=== PATIENT | female | born 1950 | race Caucasian/White ===

== ENCOUNTER 2016-07-04 21:58 | Emergency (ER) | payer MEDICARE, OTHER ==
[2016-07-04] MEDS ORDERED: NS 0.9% 1000 ML* 1,000 ML IV ONE (22:03)
--- NOTE | 2016-07-04 22:08 | ED ---
Deepthi Vazquez Claudia, scribed for Devon Fuller MD on 07/04/16 at 2204 . Complex/Multi-Sys Presentation - HPI Summary HPI Summary: 66 year old female presents to the ED via EMS. Family called EMS because per EMS pt is confused. Pt admits to fatigue. She is unable to identify where she is and the correct year. Level 5 caveat- confusion - History Of Current Complaint Hx Obtained From: Patient Hx From Patient Unobtainable Due To: Dementia Associated Signs And Symptoms: Positive: Other - confused - Allergies/Home Medications Allergies/Adverse Reactions: Allergies Allergy/AdvReac Type Severity Reaction Status Date / Time No Known Allergies Allergy Verified 04/11/15 17:05 PMH/Surg Hx/FS Hx/Imm Hx Previously Healthy: Yes Endocrine/Hematology History: Reports: Hx Diabetes, Hx Anemia Cardiovascular History: Reports: Hx Congestive Heart Failure, Hx Coronary Artery Disease, Hx Hypercholesterolemia, Hx Hypertension, Hx Myocardial Infarction - x 3 Comment Only: Other Cardiovascular Problems/Disorders - - Respiratory History: Reports: Hx Chronic Obstructive Pulmonary Disease (COPD), Other Respiratory Problems/Disorders - 1ppd smoker for 45 years GI History: Reports: Hx Gastroesophageal Reflux Disease, Hx Hiatal Hernia, Other GI Disorders - hernia History: Reports: Hx Chronic Renal Failure - diabetic nephropathy, creat baseline 1.3 Sensory History: Reports: Hx Contacts or Glasses - reading Opthamlomology History: Reports: Hx Contacts or Glasses - reading Psychiatric History: Reports: Hx Anxiety, Hx Depression - Surgical History Surgery Procedure, Year, and Place: CARDIAC STENT PLACEMENT. Cholecystectomy Hx Anesthesia Reactions: No - Immunization History Date of Tetanus Vaccine: Unk Date of Influenza Vaccine: Fall 2013 - Family History Known Family History: Positive: Cardiac Disease - 2 grandparents, Other - father had cancer, unknown what kind. mother had breast cancer - Social History Lives: With Family Alcohol Use: None Hx Substance Use: No Substance Use Type: Reports: None Hx Tobacco Use: Yes - smokes 1/2 pack per day Smoking Status (MU): Heavy Every Day Tobacco Smoker Type: Cigarettes Amount Used/How Often: 1 pack q day Have You Smoked in the Last Year: Yes Review of Systems - ROS Summary Review of Systems Summary: level 5 caveat- confused Positive: Fatigue Neurological: Other - confused All Other Systems Reviewed And Are Negative: No Physical Exam Triage Information Reviewed: Yes Vital Signs On Initial Exam: Initial Vitals Temp Pulse Resp BP Pulse Ox 101 F 102 21 155/59 97 07/04/16 22:01 07/04/16 22:01 07/04/16 22:01 07/04/16 22:01 07/04/16 22:01 Vital Signs Reviewed: Yes Appearance: Positive: Thin - malodorous Skin: Positive: Warm Head/Face: Positive: Normal Head/Face Inspection Eyes: Positive: KARLIE ENT: Positive: Hearing grossly normal Neck: Positive: Supple Respiratory/Lung Sounds: Positive: Breath Sounds Present Cardiovascular: Positive: Normal Abdomen Description: Positive: Nontender, Soft Bowel Sounds: Positive: Present Musculoskeletal: Positive: Strength/ROM Intact Neurological: Positive: Sensory/Motor Intact Diagnostics - Vital Signs Vital Signs Temp Pulse Resp BP Pulse Ox 07/04/16 22:01 101 F 102 21 155/59 97 - Laboratory Result Diagrams: 07/04/16 22:25 07/04/16 22:25 Lab Statement: Any lab studies that have been ordered have been reviewed, and results considered in the medical decision making process. - Radiology CHEST XRAY Xray Interpretation: Positive (See Comments) - THE CONSTELLATION OF FINDINGS IS MOST CONSISTENT WITH MILD INTERSTITIAL EDEMA AND ASSOCIATED SMALL PLEURAL EFFUSIONS LESS PROMINENT THAN ON THE PRIOR EXAN SUPERIMPOSED ON STIGMATA OF ADVANCED COPD. Radiology Interpretation Completed By: Radiologist - EKG 22:06 Cardiac Rate: NL EKG Rhythm: Sinus Rhythm - 96 beats/min EKG Interpretation: left posterior hemiblock Complex Multi-Symp Course/Dx Assessment/Plan: Pt presents with confusion. After a work-up, CXR and EKG. Dr. Perez will admit patient to [facility] [place] - Diagnoses Provider Diagnoses: Fever - Physician Notifications Discussed Care Of Patient With: 23:49. Discussed care of patient with Dr. Perez. Dr. Perez will admit patient to [facility] [place]. Time Discussed With Above Provider: 23:50 Instructed by Provider To: Admit As Inpatient Discharge - Discharge Plan Condition: Fair Disposition: ADMITTED TO [facility] documentation as recorded by the Deepthi schwartz Claudia accurately reflects the service I personally performed and the decisions made by me, Devon Fuller MD.
[2016-07-04 22:43] LABS: Hematocrit 33 % (35-47); Hemoglobin 10.8 g/dl (12.0-16.0); Mean Corpuscular HGB Conc 32 g/dl (31-36); Mean Corpuscular Hemoglobin 27 pg (27-31); Mean Corpuscular Volume 83 fL (80-97); Mean Platelet Volume 7 um3 (7.4-10.4); Red Blood Count 4.04 10^6/ul (4.0-5.4); Red Cell Distribution Width 17 % (10.5-15)
[2016-07-04 22:47] LABS: Add Diff/Slide Review? Slide Review Added; Comments Flag Yes
[2016-07-04 22:57] LABS: ALT 7 U/L (7-52); AST 9 U/L (13-39); Albumin 3.7 g/dL (3.2-5.2); Alkaline Phosphatase 107 U/L (34-104); Anion Gap 6 mmol/L (2-11); BUN/Creatinine Ratio 14.1 (8-20); Blood Urea Nitrogen 22 mg/dL (6-24); CO2 Carbon Dioxide 23 mmol/L (22-32); Calcium 9.1 mg/dL (8.6-10.3); Chloride 97 mmol/L (101-111); EGFR African American 42.6 (>60); EGFR Non-African American 33.1 (>60); Globulin 3.9 g/dL (2-4); Glucose 183 mg/dL (70-100); Magnesium 1.6 mg/dL (1.9-2.7); Potassium 5.4 mmol/L (3.5-5.0); Sodium 126 mmol/L (133-145); Total Protein 7.6 g/dL (6.4-8.9)
[2016-07-04 23:03] LABS: Troponin I 0.05 ng/mL (<0.04)
[2016-07-04 23:14] LABS: Alcohol < 10 mg/dL (<10)
--- NOTE | 2016-07-04 23:14 | RAD ---
INDICATION: Shortness of breath. Cough. History of COPD and congestive heart failure. Tobacco use. COMPARISON: December 16, 2015 TECHNIQUE: Dual energy PA and routine lateral views of the chest were obtained. REPORT: The patient is deviated to the LEFT with pendulous breasts superimposed over the lung bases and resulting in artifactual opacity. Elevated lung volumes and moderately coarse interstitial markings. Suggestion of small pleural effusions with interval decrease on the LEFT. Mild prominence of the interstitial markings with subtle thickened peripheral interlobular septa. Cardiomegaly. Mildly prominent central pulmonary vasculature. Unchanged mild mid thoracic spine vertebral compression fractures. No new thoracic spine compression fractures evident. Healed fractures of the RIGHT seventh and eighth ribs noted posterolaterally. No acute rib fracture evident. IMPRESSION: The constellation of findings is most consistent with mild interstitial edema and associated small pleural effusions less prominent than on the prior exam superimposed on stigmata of advanced chronic obstructive pulmonary disease.
[2016-07-04 23:24] LABS: TSH (Thyroid Stimulating Horm) 0.39 mcIU/mL (0.34-5.60)
[2016-07-04 23:33] LABS: Urine Bacteria Absent (Absent); Urine Bilirubin Negative (Negative); Urine Glucose 1+(50 mg/dL) (Negative); Urine Nitrite Negative (Negative)
[2016-07-05] MEDS ORDERED: Al Hydrox/Mg Hydrox/Simet LIQ* 30 ML UDC PO PRN (00:28)
[2016-07-05] MEDS ORDERED: Acetaminophen TAB* 325 MG PO PRN (00:28)
[2016-07-05] MEDS ORDERED: Ondansetron INJ* 2 MG/ML VIAL IV PRN (00:28)
[2016-07-05] MEDS ORDERED: Docusate CAP* 100 MG PO PRN (00:28)
[2016-07-05] MEDS ORDERED: Senna TAB PO PRN (00:28)
[2016-07-05] MEDS ORDERED: Magnesium Sulfate IV* 3 GM in NS 0.9% 100 ML* 100 ML IVPB ONE (00:31)
[2016-07-05] MEDS ORDERED: Albuterol HFA INHALER* 8 gm MDI INH PRN (00:32)
[2016-07-05] MEDS ORDERED: Dextrose 50% Syringe 50 ML* 25 GM/50 ML SYRINGE IV PUSH PRN (00:32)
[2016-07-05] MEDS ORDERED: Acetaminophen TAB* 325 MG ONE (00:42)
[2016-07-05] MEDS ORDERED: NS 0.9% 1000 ML* 1,000 ML IV ONE (00:47)
[2016-07-05] MEDS ORDERED: Insulin GLARGINE(*) 1 UNITS UNIT SUBCUT SCH (01:00)
[2016-07-05] MEDS ORDERED: NS 0.9% 1000 ML* 1,000 ML IV SCH (01:00)
[2016-07-05 02:46] VITALS: BP 150/67
[2016-07-05] MEDS ORDERED: Heparin VIAL(*) 5000 UNITS/ML VIAL (FIVE THOUSAND) SUBCUT SCH (06:00)
[2016-07-05] MEDS: Aspirin EC Low Dose* 81 MG TAB.EC PO SCH ×2 (07:24→10:31)
[2016-07-05 07:29] LABS: Hematocrit 30 % (35-47); Hemoglobin 9.6 g/dl (12.0-16.0); Mean Corpuscular HGB Conc 32 g/dl (31-36); Mean Corpuscular Hemoglobin 26 pg (27-31); Mean Corpuscular Volume 83 fL (80-97); Mean Platelet Volume 7 um3 (7.4-10.4); Red Blood Count 3.63 10^6/ul (4.0-5.4); Red Cell Distribution Width 17 % (10.5-15)
[2016-07-05] MEDS ORDERED: Insulin LISPRO* 1 UNITS UNIT SUBCUT SCH (07:30)
[2016-07-05 07:35] LABS: Comments Flag Yes
[2016-07-05 07:44] LABS: BUN/Creatinine Ratio 13.9 (8-20); Calcium 8.6 mg/dL (8.6-10.3); EGFR African American 49.5 (>60); EGFR Non-African American 38.5 (>60)
[2016-07-05] MEDS ORDERED: Fluticasone-Salmeterol 250-50* DISKUS INH SCH (09:00)
[2016-07-05] MEDS ORDERED: DULoxetine DR CAP* 60 MG CAP.DR PO SCH (09:00)
[2016-07-05] MEDS ORDERED: Tiotropium CAP.INH* CAP.INH/18 MCG (USE ORDER SET !) INH SCH (09:00)
[2016-07-05] MEDS ORDERED: Gabapentin CAP(*) 300 MG PO SCH (09:00)
--- NOTE | 2016-07-05 10:08 | HP ---
HISTORY AND PHYSICAL: DATE OF ADMISSION: 07/05/16 TIME OF EVALUATION: 0015. PRIMARY CARE PHYSICIAN: Kilo Stoner MD CHIEF COMPLAINT: Fever and altered mental status. HISTORY OF PRESENT ILLNESS: This is a 66-year-old female with a past medical history of COPD, on chronic oxygen; diabetes; hypertension, who presents to the emergency room with fever and concern for altered mental status. The patient states she started with a fever today and not feeling well. Her family, daughter and son-in-law, who lives with her called the EMS, they were concerned about her mental status and she was sent here via EMS for further evaluation. The patient states she has a chronic cough. She does not have worsening shortness of breath. No chest pain, no nausea, vomiting, diarrhea. No abdominal pain. No urinary symptoms. No myalgias or rash. No sick contacts. No recent travel. Otherwise, remaining review of systems is negative. In the emergency room, the patient had labs, imaging. She was given a liter of fluid and was referred to the hospitalist service for further evaluation. PAST MEDICAL HISTORY: 1. COPD, on 2 L continuous. 2. Diabetes. 3. Coronary artery disease. 4. GERD. 5. Depression. 6. Chronic pain. 7. Tobacco use. 8. Hyperlipidemia. MEDICATIONS: The patient has a limited provided, they are as follows: 1. Duloxetine DR 60 mg p.o. daily. 2. Glipizide 10 mg. 3. Metformin 500 mg. 4. Oxycodone/acetaminophen 10/325. 5. Spironolactone 25 mg p.o. daily. 6. Simvastatin 80 mg p.o. daily. 7. Gabapentin 600 mg. Of note, this list does not provide frequency of when she takes them. She states she takes inhalers but is unable to tell me which one they are. On the discharge summary from November, it appears she takes albuterol inhaler, fluticasone and salmeterol one puff inhaled b.i.d., and Spiriva 1 inhaled daily. ALLERGIES: No known drug allergies. FAMILY HISTORY: Reviewed and noncontributory. SOCIAL HISTORY: The patient lives with her daughter and son-in-law. She is still smoking. She states she has been smoking 2 packs per day for 50 years. No alcohol or illicit drug use. Her daughter, Cristela Odonnell, is her healthcare proxy. She is a DNR/DNI. REVIEW OF SYSTEMS: As mentioned in the HPI. PHYSICAL EXAMINATION GENERAL: In no acute distress, disheveled appearing. VITAL SIGNS: Temp T-max of 101, pulse rate 102, respiratory rate 21, oxygen saturation 97% on 2 L, blood pressure 155/59. HEENT: Pupils equal and reactive, anicteric. Oropharynx: Mucous membranes are moist. No erythema or exudate. Head: Normocephalic. NECK: Supple. No lymphadenopathy. No nuchal rigidity. RESPIRATORY: Diminished breath sounds. No wheezes, rhonchi, or rales. Poor aeration. CARDIAC: Regular rate and rhythm. Distant heart sounds. Soft systolic murmur heard throughout. ABDOMEN: Soft, nontender, nondistended. EXTREMITIES: The patient with poor hygiene in her lower extremities. No clubbing, cyanosis, or edema. NEUROLOGIC: Alert and oriented x2; oriented to place and self. No focal neurologic deficits. DIAGNOSTIC STUDIES/LAB DATA: White count 22, hemoglobin 10.8, hematocrit 33, platelets 419. Sodium 126, potassium 5.4, chloride 97, BUN 22, creatinine 1.56 , bicarb 23, glucose 183, magnesium 1.6, lactic acid 1.6. Troponin 0.05. Urine is unremarkable, +2 protein. Toxicology is negative alcohol. Chest x-ray: No significant findings on wet read. EKG showing normal sinus. ASSESSMENT AND PLAN: This is a 66-year-old female with a past medical history of chronic obstructive pulmonary disease, on continuous oxygen, who is still smoking who presents to the emergency room with fever and altered mental status. 1. Fever and altered mental status. Assessment: The patient's history and physical are consistent with systemic inflammatory response syndrome. It is unclear the etiology behind her fever. I am swabbing her right now for flu. She has no respiratory symptoms. Her chest x-ray is unremarkable. This could be early onset of viral illness, not otherwise specified. Plan: No indication for antibiotics at this time. We will follow up on blood cultures. If she continues to deteriorate, we will start her on antibiotics. If she gets dehydrated, we will continue to hydrate her. We will follow up on the flu swab and repeat her labs in the morning. 2. Acute kidney injury. Assessment is likely in the setting of her infectious process. It appears that she has an underlying chronic kidney disease based on prior creatinines. Plan: We will renally dose her meds. Repeat her labs in the morning and IV fluids. 3. Indeterminate troponin. Assessment: The patient with a troponin of 0.05 with no significant findings on EKG and no chest pain. She does have a history of coronary artery disease. I suspect this is demand ischemia in the setting of her infection. Plan: We will put her on telemetry, trend her troponins, and start her on a baby aspirin. CHRONIC MEDICAL PROBLEMS: 1. COPD. We will resume her presumed inhaler regimen that was from discharge summary in November of 2015. 2. Diabetes. We will place her on lispro and Lantus, hold oral agents. We will continue her Effexor and her gabapentin and recommend contacting the pharmacy in the morning to get an accurate complete med rec for the remaining medications. 3. FEN. We will place her on a diabetic diet. 4. DVT prophylaxis. She scores high risk. Will be placed on heparin subcu t.i.d. 5. Disposition planning. Due to patient's appearing poorly disheveled and not well taking care of, we will consult Social Work to help with safe discharge planning. 6. Code status. DNR/DNI. PATIENT TIME: Greater than 45 minutes spent doing the history and physical, more than half the time was spent in direct patient contact. CC: Kilo Stoner MD* [id number]/[facility] #: [id number] LAZARO
[2016-07-05] MEDS ORDERED: Spiriva Inhaler DEVICE* 1 EACH DEVICE INH ONE (11:00)
[2016-07-05 11:28] LABS: Manual Entry Verification GRE0060; Mono Internal Control QC Line Present
[2016-07-05] MEDS ORDERED: Mometasone/Formoter 200/5 MDI INH SCH (12:12)
--- NOTE | 2016-07-06 07:43 | DS ---
DISCHARGE SUMMARY: DATE OF ADMISSION: 07/05/16 DATE OF DISCHARGE: 07/05/16 PRIMARY CARE PHYSICIAN: Dr. Kilo Stoner. DISCHARGE DIAGNOSIS: An episode of fever and altered mental status, most likely due to systemic inflammatory response syndrome and most likely viral illness. SECONDARY DIAGNOSES: 1. Chronic obstructive pulmonary disease, on 2 L continuously. 2. Diabetes. 3. Coronary artery disease. 4. Gastroesophageal reflux disease. 5. Depression. 6. Chronic pain. 7. History of chronic tobacco use. 8. Hyperlipidemia. MEDICATIONS AT DISCHARGE: Unchanged from admission and include: 1. Duloxetine DR 60 mg daily. 2. Glipizide 10 mg daily. 3. Metformin 500 mg daily. 4. Oxycodone/acetaminophen 10/325 mg on a p.r.n. basis. 5. Aldactone 25 mg daily. 6. Simvastatin 80 mg daily. 7. Gabapentin 600 mg previously taken. 8. The patient also has Spiriva 1 inhalation daily. 9. The patient is instructed to continue her albuterol inhaler and fluticasone and salmeterol inhalers as previously taken. 10. The patient is using DuoNeb nebulizers on a p.r.n. basis, and she is to continue them as previously taken. HOSPITALIZATION COURSE: Please note the patient was at ED hold during her 15- hour hospital stay. She initially was admitted to the hospital on 07/05/16 early after midnight with an alteration of mental status. She appeared to be in systemic inflammatory response syndrome with leukocytosis, but no evidence of infection. She also had a temperature of 101 degrees. Troponin was mildly elevated at 0.05 and it is chronic and consistent with prior reports. Her EKG was unchanged. Her magnesium was at 1.6 and that was replaced her with IV magnesium. She also has chronic kidney disease stage 3, most likely due to the diabetes with creatinine that had been unchanged, but she was slightly hyponatremic and hyperkalemic that resolved after treatment with intravenous fluids. Nevertheless, once the patient was seen within the 14 hours of her admission, she was back to her baseline mentally. The patient does have history of being confused at night and I believe she probably sundowns. In fact, she was thoroughly evaluated for a similar occurrence in August 2015 and please refer to further medical records for this evaluation that included an EEG. Once again, the patient's leukocytosis with a white blood cell count of 22,000 resolved spontaneously and was down to 15,000 after intravenous fluids in the emergency department. The patient had been euthermic throughout her hospital stay apart from the initial temperature of 101 degrees recorded at admission. Her microbiology studies show influenza tests that were negative. Her blood cultures are still pending. Her urinalysis was unremarkable for infection. At this point, the patient is ready to go home and appears to be back to her baseline. She is going to be discharged home with recommendations to follow up with Dr. Stoner in approximately 4-7 days. No medications are changed. Smoking cessation was strongly recommend to the patient, but the patient appears not too willing to follow those recommendations and she still smokes a pack per day of cigarettes. She is aware of the dangers of smoking when on oxygen. I strongly recommended against it. PHYSICAL EXAMINATION AT THE TIME OF DISCHARGE: Blood pressure of 150/67, heart rate of 97 and regular, respiratory rate 18, oxygen saturation 95% on 2 L O2 nasal cannula, temperature 98.8. General: The patient is a very pleasant 66-year-old female, slightly disheveled , of thin body habitus, who is in no acute distress. The patient is alert, awake, and oriented x2. She is oriented to the month of July and 2016, but not the exact date. HEENT: Head atraumatic, normocephalic. Eyes: Pupils equal, reactive to light and accommodation. Oropharynx is clear. Mucosa moist. Neck: Supple. No JVD. No bruit bilaterally. Cardiovascular: Regular rate and rhythm. No murmur. Respiratory: Distant breath sounds bilaterally with very scattered wheezes in the bilateral upper lungs. Otherwise clear. Abdomen: Soft, nontender, bowel sounds positive in all 4 quadrants. Visible midline abdominal hernia noted that is supraumbilical. There is no tenderness to palpation of the hernia. Extremities: There is no edema. Pulses +2 bilaterally. No clubbing or cyanosis. Neurologic: Speech clear. Cranial nerves II through XII grossly intact. Motor strength is 5/5 bilaterally. Please note that this is a short summary of the patient's hospital stay. Please refer to further medical records for details. ADDENDUM TO DISCHARGE SUMMARY: DATE OF ADMISSION: 07/05/16 DATE OF DISCHARGE: 07/05/16 HOME MEDICATIONS: 1. Advair Diskus 50/50 one inhalation twice a day. 2. Albuterol inhaler 2 puffs every 4 hours p.r.n. 3. Aspirin 81 mg daily. 4. Digoxin 250 mcg daily. 5. Cymbalta 60 mg daily. 6. Pepcid 40 mg b.i.d. 7. Gabapentin 600 mg 3 times a day. 8. Glipizide 10 mg b.i.d. 9. Metformin 500 mg b.i.d. 10. Ramipril 2.5 mg daily. 11. Risperdal 0.25 mg at night. 12. Simvastatin 80 mg daily. 13. Iron ER 325 mg 3 times a day. 14. Lantus insulin 10 units q.h.s. 15. Magnesium oxide 500 mg. The patient takes 2 capsules, which is 1000 mg daily. 16. Percocet 10/325 mg every 4 to 6 hours as needed. 17. Singulair 10 mg daily. 18. Vitamin C 1 tablet daily 500 mg. 19. Voltaren 1% topical gel, apply up to 4 times a day for psoriasis on the body. The patient is asked to discontinue her spironolactone due to mild hyperkalemia with which she presented to the emergency department and to refer to primary care provider in 4to 6 days for a followup visit for further recommendations. CC: Dr. Kilo Stoner* [id number]/[facility] #: [id number]/[facility] #: [id number] MTDJonas
--- NOTE | 2016-07-06 08:09 | DS ---
DISCHARGE SUMMARY: ADDENDUM: DATE OF ADMISSION: 07/05/16 DATE OF DISCHARGE: 07/05/16 HOME MEDICATIONS: 1. Advair Diskus 50/50 one inhalation twice a day. 2. Albuterol inhaler 2 puffs every 4 hours p.r.n. 3. Aspirin 81 mg daily. 4. Digoxin 250 mcg daily. 5. Cymbalta 60 mg daily. 6. Pepcid 40 mg b.i.d. 7. Gabapentin 600 mg 3 times a day. 8. Glipizide 10 mg b.i.d. 9. Metformin 500 mg b.i.d. 10. Ramipril 2.5 mg daily. 11. Risperdal 0.25 mg at night. 12. Simvastatin 80 mg daily. 13. Iron ER 325 mg 3 times a day. 14. Lantus insulin 10 units q.h.s. 15. Magnesium oxide 500 mg. The patient takes 2 capsules, which is 1000 mg daily. 16. Percocet 10/325 mg every 4 to 6 hours as needed. 17. Singulair 10 mg daily. 18. Vitamin C 1 tablet daily 500 mg. 19. Voltaren 1% topical gel, apply up to 4 times a day for psoriasis on the body. The patient is asked to discontinue her spironolactone due to mild hyperkalemia with which she prese nted to the emergency department and to refer to primary care provider in 4to 6 days for a followup visit for further recommendations. [id number]/[facility] #: [id number]
== END 2016-07-05 14:05 | disposition home or self-care (01) | DRG 864 ==
LOC: ED 21:58 → UNDOADMIN 07-05 00:28 → MEDTELE 07-05 00:28
DX: R50.9 Fever, unspecified (principal); F03.90 Unspecified dementia, unspecified severity, without behavioral disturbance, psychotic disturbance, mood disturbance, and anxiety; R53.83 Other fatigue; R41.0 Disorientation, unspecified; F17.210 Nicotine dependence, cigarettes, uncomplicated
CPT/HCPCS: 36415; 71020; 80048; 80053; 80320; 81003; 81015; 83605; 83735; 84145; 84443; 84484; 85025; 86308; 87040; 87502; 87641; 93005; 99284; A9270-GY; G0480; J1644; J3475

== ENCOUNTER → 2018-04-29 19:48 | Emergency (ER) | payer MEDICARE, OTHER ==
[~2018-04-29 19:48] MED LIST: NS 0.9% 1000 ML* 1,000 ML IV ONE
--- NOTE | 2018-04-29 20:13 | ED ---
Altered Mental Status - HPI Summary HPI Summary: Level 5 Caveat: Unable to obtain complete HPI due to AMS The pt is a 68 y/o female [facility] c/o weakness since 2 days ago worsened yesterday. She notes confusion, dry mouth, fatigue, nausea, and difficulty walking but denies dysuria. Her daughter reports that the pt recently got discharged from hospital where she had been admitted for COPD and a UTI. Since then, the pt has been different. She appears confused and agitated. Ap per EMS , the pt appeared pale and diaphoretic on arrival. Her BG was 37 mg/dL on EMS arrival, 71 mg/dL en route and 60mg/dL on arrival to the ED. The pt resisted attempts for IV access en route. She also appeared pale, cool to touch and diaphoretic. - History Of Current Complaint Stated Complaint: SLURRED SPEECH/LT SIDE WEAKNESS Time Seen by Provider: 04/29/18 20:03 Hx Obtained From: Patient, Family/Business Broker - Daughter, EMS Hx From Patient Unobtainable Due To: Altered Mental Status Onset/Duration: Still Present, Gradually Timing: Constant Character: Confusion, Agitation Associated Signs And Symptoms: Positive: Nausea, Weakness - Allergies/Home Medications Allergies/Adverse Reactions: Allergies Allergy/AdvReac Type Severity Reaction Status Date / Time No Known Allergies Allergy Verified 04/11/15 17:05 PMH/Surg Hx/FS Hx/Imm Hx Previously Healthy: No - Level 5 Caveat: Unable to obtain complete Mhx due to AMS Endocrine/Hematology History: Reports: Hx Diabetes, Hx Anemia Cardiovascular History: Reports: Hx Congestive Heart Failure, Hx Coronary Artery Disease, Hx Hypercholesterolemia, Hx Hypertension, Hx Myocardial Infarction - x 3 Comment Only: Other Cardiovascular Problems/Disorders - - Respiratory History: Reports: Hx Chronic Obstructive Pulmonary Disease (COPD), Other Respiratory Problems/Disorders - 1ppd smoker for 45 years GI History: Reports: Hx Gastroesophageal Reflux Disease, Hx Hiatal Hernia, Other GI Disorders - hernia History: Reports: Hx Chronic Renal Failure - diabetic nephropathy, creat baseline 1.3 Sensory History: Reports: Hx Contacts or Glasses - reading Opthamlomology History: Reports: Hx Contacts or Glasses - reading Psychiatric History: Reports: Hx Anxiety, Hx Depression - Cancer History Cancer Type, Location and Year: None reported - Surgical History Surgery Procedure, Year, and Place: Cardiac Stent Placement. Cholecystectomy Hx Anesthesia Reactions: No - Immunization History Date of Tetanus Vaccine: Unk Date of Influenza Vaccine: Fall 2013 Infectious Disease History: Denies: Traveled Outside the [place] in Last 30 Days - Family History Known Family History: Positive: Cardiac Disease - 2 grandparents, Other - father had cancer, unknown what kind. mother had breast cancer - Social History Lives: With Family Alcohol Use: None Hx Substance Use: No Substance Use Type: Reports: None Hx Tobacco Use: Yes - smokes 1/2 pack per day Smoking Status (MU): Heavy Every Day Tobacco Smoker Type: Cigarettes Amount Used/How Often: 1 pack q day Have You Smoked in the Last Year: Yes Review of Systems - ROS Summary Review of Systems Summary: Level 5 Caveat: Unable to obtain complete ROS due to AMS Constitutional: Other - Positive: Weakness, confusion, agitation Positive: Fatigue, Skin Diaphoresis Gastrointestinal: Other - Positive: Dry mouth Positive: Nausea Negative: dysuria Skin: Other - Positive: cool to touch, pale Positive: Weakness All Other Systems Reviewed And Are Negative: No Physical Exam - Summary Physical Exam Summary: Level 5 Caveat: Unable to obtain complete PE due to AMS Appearance: The patient is well-nourished in no acute distress and in no acute pain.She arouses to voice and answers simple questions Skin: The skin is warm and dry and skin color reflects adequate perfusion. HEENT: The head is normocephalic and atraumatic. The pupils are equal and reactive. The conjunctivae are clear and without drainage. Nares are patent and without drainage. Mouth reveals moist mucous membranes and the throat is without erythema and exudate. The external ears are intact. The ear canals are patent and without drainage. The tympanic membranes are intact. Neck: The neck is supple with full range of motion and non-tender. There are no carotid bruits. There is no neck vein distension. Respiratory: Chest is non-tender. Lungs are clear to auscultation and breath sounds are symmetrical and equal. Cardiovascular: Heart is regular rate and rhythm. There is no murmur or rub auscultated. There is no peripheral edema and pulses are symmetrical and equal. Abdomen: The abdomen is soft and non-tender. There are normal bowel sounds heard in all four quadrants and there is no organomegaly palpated. Musculoskeletal: There is no back tenderness noted. Extremities are non-tender with full range of motion. There is good capillary refill. There is no peripheral edema or calf tenderness elicited. Neurological: Patient is alert and oriented to person, place and time. The patient has symmetrical motor strength in all four extremities. Cranial nerves are grossly intact. Deep tendon reflexes are symmetrical and equal in all four extremities. Psychiatric: The patient has an appropriate affect and does not exhibit any anxiety or depression. GCS: 14 Triage Information Reviewed: Yes Vital Signs On Initial Exam: Initial Vital Signs Temp 96.4 F 04/29/18 20:06 Pulse 59 04/29/18 20:06 Resp 25 04/29/18 20:06 BP 136/66 04/29/18 20:06 Pulse Ox 100 04/29/18 20:06 Vital Signs Reviewed: Yes Completion Of Physical Exam Limited Due To: Altered Mental Status Diagnostics - Laboratory Result Diagrams: 04/29/18 20:33 04/29/18 20:25 Lab Statement: Any lab studies that have been ordered have been reviewed, and results considered in the medical decision making process. - Radiology CXR Radiology Interpretation Completed By: ED Physician - IMPRESSION:Left heart border is somewhat obscured but the exam is consistent with her most recent read as mild pulmonary edema. - CT Brain CT CT Interpretation Completed By: Radiologist - IMPRESSION: No acute intracranial abnormality. The ED physician reviewed this radiology report. - EKG 20:07 EKG Rhythm: Atrial Fibrillation Summary of EKG Findings: Rate: 93 bpm Altered Mental Statu Course/Dx - Course Course Of Treatment: Ms. Metz presented to the emergency department and confused and agitated state. She has had a recent admission to the hospital and since she's been home her daughter is not felt that she's been completely back to normal. Her fingerstick blood sugar earlier today was over 300 and she was covered with insulin just prior to calling the ambulance. The eminence found her blood sugar to be 70 on fingerstick. He her blood sugar was 60 and she was given orange juice while the rest of her labs were obtained. On initial presentation she was somewhat lethargic and confused. By the time her blood sugar came back at 50 she was back to normal after drinking 2 glasses of orange juice. Even though her symptoms seem to have occurred when her blood sugar was high according to the family, she improved completely with blood sugar here and the family agrees that she is back to her normal self. She is eating something now and will be discharged as long as she remains stable. - Diagnoses Provider Diagnoses: Hypoglycemic reaction Discharge - Sign-Out/Discharge Documenting (check all that apply): Patient Departure - Discharge Plan Condition: Stable Disposition: HOME Patient Education Materials: Hypoglycemia in a Person with Diabetes (ED) Referrals: Herbie BENNETT,Kilo oJhns [Primary Care Provider] - - Billing Disposition and Condition Condition: STABLE Disposition: Home - Attestation Statements Document Initiated by Scribe: Yes Documenting Scribe: Nita Boyle Provider For Whom Celine is Documenting (Include Credential): Dr. Arnoldo Pate MD Scribe Attestation: Nita Vazquez , scribed for Dr. Arnoldo Pate MD on 04/29/18 at 2149. Scribe Documentation Reviewed: Yes Provider Attestation: The documentation as recorded by the scribeNita accurately reflects the service I personally performed and the decisions made by me, Dr. Arnoldo Pate MD
[2018-04-29 20:41] LABS: Hematocrit 44 % (35-47); Hemoglobin 14.6 g/dl (12.0-16.0); Mean Corpuscular HGB Conc 33 g/dl (31-36); Mean Corpuscular Hemoglobin 29 pg (27-31); Mean Corpuscular Volume 87 fL (80-97); Mean Platelet Volume 7.4 um3 (7.4-10.4); Platelet Count 433 10^3/ul (150-450); Red Blood Count 5.05 10^6/ul (4.00-5.40); Red Cell Distribution Width 14 % (10.5-15); White Blood Count 14.9 10^3/ul (3.5-10.8)
[2018-04-29 20:47] LABS: INR 0.85 (0.77-1.02)
--- NOTE | 2018-04-29 20:51 | RAD ---
EXAM: CT Head Without Intravenous Contrast EXAM DATE/TIME: 04/29/2018 8:44 PM CLINICAL HISTORY: 68 years old, female; Pain; Headache; Additional info: AMS TECHNIQUE: Axial computed tomography images of the head/brain without intravenous contrast. All CT scans at this facility use at least one of these dose optimization techniques: automated exposure control; mA and/or kV adjustment per patient size (includes targeted exams where dose is matched to clinical indication); or iterative reconstruction. COMPARISON: BRAIN WO CT BRAIN WO 09/06/2015 4:56 AM FINDINGS: Brain: Decreased attenuation of the supratentorial white matter is likely secondary to chronic microvascular ischemia. No acute intracranial hemorrhage. Ventricles: Ventricular and subarachnoid spaces are age appropriate. Bones/joints: Normal. No acute fracture. Sinuses: Polypoid mucosal disease involving the right greater than left maxillary sinuses. Mastoid air cells: Partial opacification of the bilateral mastoid air cells Soft tissues: Normal. Vasculature: Intracranial vascular calcification. IMPRESSION: No acute intracranial abnormality. To contact [facility] with a general question: [facility] - [phone] For direct physician to physician contact: Physician Hotline - [phone] [facility] ([facility] Facility ID #[id number])
[2018-04-29 20:58] LABS: EGFR Non-African American 35.5 (>60)
[2018-04-29 21:30] LABS: Urine Appearance Cloudy; Urine Blood Negative (Negative); Urine Color Yellow; Urine Ketones Negative (Negative); Urine Protein 2+(100 mg/dL) (Negative); Urine Red Blood Cell Absent (Absent); Urine Specific Gravity 1.015 (1.010-1.030); Urine Urobilinogen Negative (Negative); Urine White Blood Cell Trace(0-5/hpf) (Absent)
[2018-04-29 21:31] LABS: ABS Basophils 0.1 10^3/ul (0-0.2); ABS Eosinophils 0.2 10^3/ul (0-0.6); ABS Monocytes 1.8 10^3/ul (0-0.8); ABS Neutrophils 11.9 10^3/ul (1.5-7.7); ABS Nucleated RBC 0 10^3/ul; Lymphocyte % 6.6 % (25-47); Nucleated Red Blood Cells % 0.1
[2018-04-29 22:24] VITALS: BP 122/74
--- NOTE | 2018-04-30 08:04 | RAD ---
HISTORY: AMS COMPARISONS: July 04, 2016 VIEWS: 1: frontal AP view of the chest at 8:21 PM FINDINGS: LINES AND TUBES: None. CARDIOMEDIASTINAL SILHOUETTE: The cardiomediastinal silhouette is normal for portable technique. PLEURA: The costophrenic angles are sharp. No pleural abnormalities are noted. LUNG PARENCHYMA: There is patchy alveolar opacification of the left lung base. There is prominence of the central pulmonary vasculature. ABDOMEN: The upper abdomen is clear. There is no subphrenic gas. BONES AND SOFT TISSUES: No bone or soft tissue abnormalities are noted. IMPRESSION: PULMONARY VASCULAR CONGESTION WITH LEFT BASILAR ATELECTASIS VERSUS EARLY CONSOLIDATION. R2
--- NOTE | 2018-04-30 18:43 | PN ---
Progress Note - Progress Note Date of Service: 04/29/18 Note: Pt. seen in ER yesterday for hypoglycemia and altered mental status. The side chest x-ray done at that time. Radiology read is concerning for possible early consolidation versus atelectasis. Attempted to call patient at home today at 1842, message left. Will attempt to call again tomorrow.
--- NOTE | 2018-05-01 18:29 | PN ---
Progress Note - Progress Note Date of Service: 05/01/18 Note: patient called back yesterday and today and discussed no fever. no cough. so will not treat as pneumonia. will follow up with primary about chest xray results.
== END | disposition home or self-care (01) ==
LOC: ED 19:48
DX: E11.649 Type 2 diabetes mellitus with hypoglycemia without coma (principal); R53.1 Weakness; R47.81 Slurred speech; R11.0 Nausea; F17.210 Nicotine dependence, cigarettes, uncomplicated
CPT/HCPCS: 36415; 70450; 71045; 80053; 80320; 81003; 81015; 83605; 83880; 84484; 85025; 85610; 87086; 93005; 99284; G0480

== ENCOUNTER 2019-08-02 17:45 | Emergency (ER) | payer MEDICARE, OTHER ==
[2019-08-02] MEDS ORDERED: Acetaminophen TAB* 325 MG PO ONE (18:09)
--- NOTE | 2019-08-02 18:10 | ED ---
Adult Trauma - HPI Summary HPI Summary: 69 year old female presents to the ED with a chief complaint of buttock, left hip and lower chest wall pain secondary to falling from a standing position [employer]VOC[employer]. She did not lose consciousness. Patient usually uses a walker, but is now unable to walk 2/2 pain. Patient is usually on 2L O2. History of CHF, HTN, ND, and CRF. Patient denies LOC or hitting head. No HELDER. Not on blood thinners. - History of Current Complaint Chief Complaint: EDFall Stated Complaint: FALLS & HIP/BACK PAIN PER EMS Time Seen by Provider: 08/02/19 17:53 Hx Obtained From: Patient ?: No Mechanism of Injury: Fall - From a standing position Loss of Consciousness: no loss of consciousness Onset of Pain: Immediate Onset Severity: Severe Current Severity: Severe Pain Intensity: 8 Pain Scale Used: 0-10 Numeric Location: Chest, Abdomen/Pelvis Aggravating Factor(s): Weight Bearing Alleviating Factor(s): Nothing Associated Signs & Symptoms: Positive: Chest Pain - Chest wall. Negative: Loss of Consciousness - Additional Pertinent History Primary Care Physician: EVA - Allergy/Home Medications Allergies/Adverse Reactions: Allergies Allergy/AdvReac Type Severity Reaction Status Date / Time No Known Allergies Allergy Verified 12/17/18 13:56 PMH/Surg Hx/FS Hx/Imm Hx Endocrine/Hematology History: Reports: Hx Anemia Denies: Hx Diabetes Cardiovascular History: Reports: Hx Congestive Heart Failure, Hx Coronary Artery Disease, Hx Hypercholesterolemia, Hx Hypertension, Hx Myocardial Infarction - x 3 Comment Only: Other Cardiovascular Problems/Disorders - - Respiratory History: Reports: Hx Chronic Obstructive Pulmonary Disease (COPD), Other Respiratory Problems/Disorders - 1ppd smoker for 45 years GI History: Reports: Hx Gastroesophageal Reflux Disease, Hx Hiatal Hernia, Other GI Disorders - hernia History: Reports: Hx Chronic Renal Failure - diabetic nephropathy, creat baseline 1.3 Sensory History: Reports: Hx Contacts or Glasses - reading Denies: Hx Hearing Aid Opthamlomology History: Reports: Hx Contacts or Glasses - reading Neurological History: Reports: Hx Dementia - early onset Denies: Hx Seizures, Hx Transient Ischemic Attacks (TIA) Psychiatric History: Reports: Hx Anxiety, Hx Depression - Cancer History Cancer Type, Location and Year: None reported - Surgical History Surgery Procedure, Year, and Place: Cardiac Stent Placement. Cholecystectomy Hx Anesthesia Reactions: No - Immunization History Date of Tetanus Vaccine: Unk Date of Influenza Vaccine: Fall 2013 Infectious Disease History: No Infectious Disease History: Denies: Traveled Outside the [place] in Last 30 Days - Family History Known Family History: Positive: Cardiac Disease - 2 grandparents, Other - father had cancer, unknown what kind. mother had breast cancer - Social History Alcohol Use: None Hx Substance Use: No Substance Use Type: Reports: None Hx Tobacco Use: Yes - smokes 1/2 pack per day Smoking Status (MU): Heavy Every Day Tobacco Smoker Type: Cigarettes Amount Used/How Often: 1 pack q day Have You Smoked in the Last Year: Yes Review of Systems Negative: Fever Positive: Chest Pain - Left chest wall Positive: Arthralgia - Left hip, Myalgia Negative: Syncope All Other Systems Reviewed And Are Negative: Yes Physical Exam - Summary Physical Exam Summary: Constitutional: Well-developed, Well-nourished, elderly, obese Alert HENT: Normocephalic. Atraumatic, No abrasions/contusions, No trismus. Nasal Cannula in place. Eyes: EOM normal, PERRL Neck: Trachea midline, No stridor, No cervical step off, No posterior cervical spine tenderness Cardio: Rhythm regular, rate normal, Heart sounds normal, Radial pulses are 2+ and symmetric. Pulmonary/Chest wall: Effort normal, Breath sounds normal, (-) Stridor, Equal chest rise. Mild L sided lower lateral rib tenderness. Abd: Soft, Appearance normal. (-) Distension, (-) Tenderness. Musculoskeletal: No obvious extremity trauma. No TL midline tenderness. TTP to sacrum, lower left rib, and lateral left hip. Neuro: Alert, GCS 15. Strength 5/5 all extremities. Ambulation deferred Skin: Warm, Dry, Skin intact Triage Information Reviewed: Yes Vital Signs On Initial Exam: Initial Vitals Temp Pulse Resp BP Pulse Ox 97.4 F 61 20 184/84 93 08/02/19 17:53 08/02/19 17:53 08/02/19 17:53 08/02/19 17:53 08/02/19 17:53 Vital Signs Reviewed: Yes Procedures - Sedation Patient Received Moderate/Deep Sedation with Procedure: No Diagnostics - Vital Signs Vital Signs Temp Pulse Resp BP Pulse Ox 08/02/19 17:53 97.4 F 61 20 184/84 93 - Laboratory Lab Statement: Any lab studies that have been ordered have been reviewed, and results considered in the medical decision making process. - Radiology Sacrum XR Radiology Interpretation Completed By: ED Physician Summary of Radiographic Findings: No acute fracture. Pending official read. An ED physician has reviewed and interpreted this scan. Pelvis XR Radiology Interpretation Completed By: ED Physician Summary of Radiographic Findings: No acute fracture. Pending official read. An ED physician has reviewed and interpreted this scan. CXR Radiology Interpretation Completed By: ED Physician Summary of Radiographic Findings: No acute fracture. Pending official read. An ED physician has reviewed and interpreted this scan. Re-Evaluation - Re-Evaluation First Eval Re-Evaluation Time: 19:50 Comment: Patient unable to ambulate with effort, only able to stand. Plan for pelvic CT. Second Eval Re-Evaluation Time: 21:35 Comment: I have discussed results with the patient. Discussed symptoms that warrant immediate return to ED. Adult Trauma Course/Dx - Course Course Of Treatment: 69 y/o F w hx CHF on home O2, p/w fall from sitting. - VS w baseline hypoxia, on home O2. PE w TTP L lateral ribs, coccyx, L hip. no midline CTL tenderness. Plain films neg for fr. Given tylenol for pain. Signed out pending re evaluation, ambulation. If unable to ambulate would check CT pelvis to r/o occult fr. - Diagnoses Provider Diagnoses: Fall, Pain in buttock, Rib pain on left side Discharge ED - Sign-Out/Discharge Documenting (check all that apply): Sign-Out Patient Signing out patient TO: Nelida Anaya - Patient is a signout to Dr. Anaya at change of shifts at 1900 on 08/02/19. - Discharge Plan Condition: Stable Disposition: HOME Patient Education Materials: Fall Prevention for Older Adults (ED) Referrals: Herbie BENNETT,Kilo Johns [Primary Care Provider] - 3 Days Additional Instructions: Please follow up with your primary care physician within three days. Please return to ED for any new or worsening symptoms. - Billing Disposition and Condition Condition: STABLE Disposition: Home - Attestation Statements Document Initiated by Scribe: Yes Documenting Scribe: Jose Canchola Provider For Whom Scribe is Documenting (Include Credential): Ishmael Prajapati MD Scribe Attestation: IJose scribed for Ishmael Prajapati MD on 08/03/19 at 0742. Scribe Documentation Reviewed: Yes Provider Attestation: The documentation as recorded by the scribe, Jose Canchola accurately reflects the service I personally performed and the decisions made by me, Ishmael Prajapati MD Status of Scribe Document: Viewed
--- NOTE | 2019-08-02 19:11 | ED ---
Progress - Progress Note Progress Note: The patient is a sign-out from Dr. Ishmael Prajapati MD, to Dr. Nelida Anaya MD, at change of shift at 1900 on 08/02/2019, pending ambulation and disposition. Patient unable to ambulate well. We will order a Pelvis CT. Pelvis CT is negative for fracture. Patient is safe for discharge. Her daughter will come pick her up. - Results/Orders Results/Orders: Pelvis CT Impression: No visible acute fracture or dislocation. ED physician has reviewed this report. Re-Evaluation - Re-Evaluation First Eval Re-Evaluation Time: 19:50 Comment: Patient unable to ambulate with effort, only able to stand. Plan for pelvic CT. Second Eval Re-Evaluation Time: 21:35 Comment: I have discussed results with the patient. Discussed symptoms that warrant immediate return to ED. Course/Dx - Course Course Of Treatment: 69 year old female signed out to me after fall. still with hip pain and difficulty ambulating. ct pelvis negative. patient states she would rather go home than be admitted. ambulater with walker. discharged to home. follow up with PCP, follow up sooner for any worsening symptoms. - Diagnoses Provider Diagnoses: Fall, Pain in buttock, Rib pain on left side Discharge ED - Sign-Out/Discharge Documenting (check all that apply): Patient Departure - Patient will be discharged home., Receiving Sign-Out Receiving patient FROM: Ishmael Prajapati - Patient is a sign-out from Dr. Ishmael Prajapati MD, at 1900 on 08/02/2019, pending ambulation and disposition. - Discharge Plan Condition: Stable Disposition: HOME Patient Education Materials: Fall Prevention for Older Adults (ED) Referrals: Herbie BENNETT,Kilo Johns [Primary Care Provider] - 3 Days Additional Instructions: Please follow up with your primary care physician within three days. Please return to ED for any new or worsening symptoms. - Billing Disposition and Condition Condition: STABLE Disposition: Home - Attestation Statements Document Initiated by Scribe: Yes Documenting Scribe: Ibeth Stanley Provider For Whom Scribe is Documenting (Include Credential): Dr. Nelida Anaya MD Scribe Attestation: IIbeth, laurenibed for Dr. Nelida Anaya MD on 08/03/19 at 0013. Scribe Documentation Reviewed: Yes Provider Attestation: The documentation as recorded by the scribe, Ibeth Stanley accurately reflects the service I personally performed and the decisions made by me, Dr. Nelida Anaya MD Status of Scribe Document: Viewed Procedures - Sedation Patient Received Moderate/Deep Sedation with Procedure: No
[2019-08-02] MEDS ORDERED: Lidocaine PATCH 5%* 1 PATCH TRANSDERM ONE (20:00)
[2019-08-02] MEDS ORDERED: Lidocaine Patch REMOVE* 1 NOTE MISC SCH (21:00)
[2019-08-02 22:27] VITALS: BP 143/63
[2019-08-03] MEDS ORDERED: Lidocaine Patch REMOVE* 1 NOTE MISC PATCH OFF SCH (06:00)
== END 2019-08-02 22:29 | disposition home or self-care (01) ==
LOC: ED 17:45
DX: R07.81 Pleurodynia (principal); M79.10 Myalgia, unspecified site; M25.552 Pain in left hip; W18.30XA Fall on same level, unspecified, initial encounter; Y92.9 Unspecified place or not applicable; M85.88 Other specified disorders of bone density and structure, other site; J98.11 Atelectasis; I25.2 Old myocardial infarction; I13.0 Hypertensive heart and chronic kidney disease with heart failure and stage 1 through stage 4 chronic kidney disease, or unspecified chronic kidney disease; N18.9 Chronic kidney disease, unspecified; J44.9 Chronic obstructive pulmonary disease, unspecified; Z99.81 Dependence on supplemental oxygen; Z95.5 Presence of coronary angioplasty implant and graft; F17.210 Nicotine dependence, cigarettes, uncomplicated
CPT/HCPCS: 71046; 72190; 72192; 72220; 99283; A9270-GY

== ENCOUNTER 2020-03-06 20:03 | Observation (INO) ==
[2020-03-06] MEDS ORDERED: NS 0.9% 1000 ml BAG 1,000 ML IV.FLUID IV ONE (20:13)
[2020-03-06 21:04] LABS: Urine Appearance Cloudy; Urine Bilirubin Negative (Negative); Urine Blood 1+ (Negative); Urine Color Yellow; Urine Glucose 3+(>=500 mg/dL) (Negative); Urine Ketones Negative (Negative); Urine Nitrite Negative (Negative); Urine Protein 3+(>=500 mg/dL) (Negative); Urine Specific Gravity 1.017 (1.010-1.030); Urine Urobilinogen Negative (Negative)
[2020-03-06 21:17] LABS: ABS Basophils 0.1 10^3/ul (0-0.2); ABS Lymphocytes 0.8 10^3/ul (1.0-4.8); ABS Neutrophils 13.4 10^3/ul (1.5-7.7); Eosinophil % 0.2 %; Hematocrit 39 % (35-47); Hemoglobin 13.1 g/dL (12.0-16.0); Lymphocyte % 5.4 %; Mean Corpuscular HGB Conc 33 g/dL (31-36); Mean Corpuscular Hemoglobin 29 pg (27-31); Mean Corpuscular Volume 86 fL (80-97); Mean Platelet Volume 7.7 fL (7.4-10.4); Nucleated Red Blood Cells % 0.1; Platelet Count 348 10^3/uL (150-450); Red Blood Count 4.56 10^6 /uL (3.70-4.87); Red Cell Distribution Width 14 % (10-15); White Blood Count 15.4 10^3/uL (3.5-10.8)
[2020-03-06 21:28] LABS: Activated Partial Thrombo Time 31.3 seconds (26.0-38.0); INR 1.23 (0.82-1.09)
[2020-03-06 21:43] LABS: Albumin 3.8 g/dL (3.2-5.2); BUN/Creatinine Ratio 20.9 (8-20); Calcium 9.1 mg/dL (8.6-10.3); EGFR African American 28.7 (>60); EGFR Non-African American 23.7 (>60); Globulin 3.7 g/dL (2-4); Potassium 4.9 mmol/L (3.5-5.0); Total Bilirubin 0.5 mg/dL (0.2-1.0); Total Protein 7.5 g/dL (6.4-8.9)
[2020-03-06 21:44] LABS: Troponin I 0.02 ng/mL (<0.03)
[2020-03-06] MEDS ORDERED: Dextrose 50% Syringe 50 ml 25 GM/50 ML SYRINGE IV PUSH PRN (22:13)
[2020-03-07] MEDS ORDERED: cefTRIAXone 1 gm/50 mL NS BAG 1 GM/50 ML BAG IV ONE (00:57)
[2020-03-07] MEDS ORDERED: Senna TAB 8.6 mg TAB PO PRN (02:41)
[2020-03-07] MEDS ORDERED: Ondansetron 4 mg VIAL 2 MG/ML 2 ml VIAL IV PRN (02:41)
[2020-03-07] MEDS ORDERED: Albuterol HFA INHALER 8 gm MDI INH PRN (02:43)
[2020-03-07] MEDS ORDERED: Iodixanol (CONTRAST) 320 MG/ML 100 ML SDV IV ONE (04:11)
[2020-03-07] MEDS: NS 0.9% 1000 ml BAG 1,000 ML IV SCH ×2 (05:34→16:24)
[2020-03-07 05:35] LABS: C Reactive Protein 108.13 mg/L (<8.01); HDL Cholesterol 48.9 mg/dL
[2020-03-07] MEDS: Cholecalciferol (VIT D3) 400 units TAB PO SCH (08:31)
[2020-03-07] MEDS: DULoxetine DR 60 mg CAP PO SCH (08:31)
[2020-03-07] MEDS: Nystatin TOP POWDER 15 GM BTL TOPICAL SCH ×3 (08:32→20:09)
[2020-03-07 16:31] LABS: ABS Basophils 0.1 10^3/ul (0-0.2); ABS Eosinophils 0.3 10^3/ul (0-0.6); ABS Lymphocytes 1.5 10^3/ul (1.0-4.8); ABS Monocytes 1.2 10^3/ul (0-0.8); ABS Neutrophils 7.8 10^3/ul (1.5-7.7); Eosinophil % 2.3 %; Hematocrit 35 % (35-47); Hemoglobin 11.4 g/dL (12.0-16.0); Lymphocyte % 13.6 %; Mean Corpuscular HGB Conc 33 g/dL (31-36); Mean Corpuscular Hemoglobin 28 pg (27-31); Mean Corpuscular Volume 87 fL (80-97); Mean Platelet Volume 7.6 fL (7.4-10.4); Platelet Count 284 10^3/uL (150-450); Red Blood Count 4.03 10^6 /uL (3.70-4.87); Red Cell Distribution Width 15 % (10-15); White Blood Count 10.8 10^3/uL (3.5-10.8)
[2020-03-07 16:41] LABS: Calcium 8.4 mg/dL (8.6-10.3); Potassium 4.7 mmol/L (3.5-5.0)
[2020-03-07 16:46] LABS: BUN/Creatinine Ratio 21.8 (8-20); C Reactive Protein 197.5 mg/L (<8.01); EGFR African American 33.8 (>60); EGFR Non-African American 27.9 (>60)
[2020-03-07] MEDS: Insulin GLARGINE 100 un/ml 10 ml VIAL SUBCUT SCH (20:09)
[2020-03-08] MEDS: cefTRIAXone 1 gm/50 mL NS BAG 1 GM/50 ML BAG IVPB SCH (00:44)
[2020-03-08] MEDS: NS 0.9% 1000 ml BAG 1,000 ML IV SCH ×2 (02:56→23:03)
[2020-03-08 06:06] LABS: ABS Basophils 0.1 10^3/ul (0-0.2); ABS Eosinophils 0.5 10^3/ul (0-0.6); ABS Lymphocytes 1.5 10^3/ul (1.0-4.8); ABS Monocytes 0.9 10^3/ul (0-0.8); ABS Neutrophils 6.3 10^3/ul (1.5-7.7); Eosinophil % 5.8 %; Hematocrit 31 % (35-47); Hemoglobin 10.6 g/dL (12.0-16.0); Mean Corpuscular HGB Conc 35 g/dL (31-36); Mean Corpuscular Hemoglobin 30 pg (27-31); Mean Corpuscular Volume 86 fL (80-97); Mean Platelet Volume 7.6 fL (7.4-10.4); Platelet Count 276 10^3/uL (150-450); Red Cell Distribution Width 15 % (10-15); White Blood Count 9.4 10^3/uL (3.5-10.8)
[2020-03-08 06:23] LABS: BUN/Creatinine Ratio 19.7 (8-20); Calcium 8.3 mg/dL (8.6-10.3); EGFR African American 35.1 (>60); Potassium 4.4 mmol/L (3.5-5.0)
[2020-03-08] MEDS: DULoxetine DR 60 mg CAP PO SCH (08:15)
[2020-03-08] MEDS: Cholecalciferol (VIT D3) 400 units TAB PO SCH (08:16)
[2020-03-08] MEDS: Nystatin TOP POWDER 15 GM BTL TOPICAL SCH ×3 (08:16→21:01)
[2020-03-08 14:19] LABS: Influenza A Molecular Negative (Negative); Influenza B Molecular Negative (Negative)
[2020-03-08] MEDS: Insulin GLARGINE 100 un/ml 10 ml VIAL SUBCUT SCH (21:00)
[2020-03-09] MEDS: cefTRIAXone 1 gm/50 mL NS BAG 1 GM/50 ML BAG IVPB SCH (01:18)
[2020-03-09 09:27] VITALS: BP 159/70
[2020-03-09] MEDS: DULoxetine DR 60 mg CAP PO SCH (09:56)
[2020-03-09] MEDS: Nystatin TOP POWDER 15 GM BTL TOPICAL SCH ×2 (09:56→14:32)
[2020-03-09] MEDS: Cholecalciferol (VIT D3) 400 units TAB PO SCH (09:56)
== END 2020-03-09 15:00 | disposition home or self-care (01) ==
LOC: ED 20:03 → MEDTELE 20:03
PROVIDERS: ADMIT Internal Medicine; ATTEND Student in an Organized Health Care Education/Training Program

== ENCOUNTER 2021-06-23 18:32 | Inpatient (IN) ==
[2021-06-23 19:07] LABS: ABS Basophils 0.1 10^3/ul (0-0.2); ABS Eosinophils 0.2 10^3/ul (0-0.6); ABS Lymphocytes 1.4 10^3/ul (1.0-4.8); ABS Monocytes 1.4 10^3/ul (0-0.8); ABS Neutrophils 13.5 10^3/ul (1.5-7.7); Eosinophil % 0.9 %; Hematocrit 36 % (35-47); Hemoglobin 11.3 g/dL (12.0-16.0); Lymphocyte % 8.5 %; Mean Corpuscular HGB Conc 32 g/dL (31-36); Mean Corpuscular Hemoglobin 28 pg (27-31); Mean Corpuscular Volume 87 fL (80-97); Mean Platelet Volume 7.5 fL (7.4-10.4); Nucleated Red Blood Cells % 0.1; Platelet Count 446 10^3/uL (150-450); Red Cell Distribution Width 18 % (10-15); White Blood Count 16.6 10^3/uL (3.5-10.8)
[2021-06-23 19:12] LABS: PCO2 Arterial 42 mmHg (35-45); PO2 Arterial 85 mmHg (80-100)
[2021-06-23 19:25] LABS: Albumin 3.7 g/dL (3.2-5.2); Albumin/Globulin Ratio 0.9 (1-3); C Reactive Protein 201.9 mg/L (<8.01); Calcium 8.5 mg/dL (8.6-10.3); Globulin 4.1 g/dL (2-4); Total Bilirubin 0.5 mg/dL (0.2-1.0); Total Protein 7.8 g/dL (6.4-8.9); eGFR CKD-EPI 17.5 (>60)
[2021-06-23 19:44] LABS: Magnesium 2.2 mg/dL (1.9-2.7); Potassium 4.6 mmol/L (3.5-5.0)
[2021-06-23 20:05] LABS: TSH Ultra Thyroid Stim Horm 0.42 mcIU/mL (0.34-5.60)
[2021-06-23] MEDS ORDERED: Azithromycin 500 mg/250 ml NS 500 MG/250 ML BAG IVPB ONE (20:14)
[2021-06-23] MEDS ORDERED: cefTRIAXone 1 gm/50 mL NS BAG 1 GM/50 ML BAG IV ONE (20:14)
[2021-06-23] MEDS ORDERED: Furosemide 40 mg/4 ml IV VIAL IV ONE (20:56)
[2021-06-23] MEDS ORDERED: Dextrose 50% Syringe 50 ml 25 GM/50 ML SYRINGE IV PUSH PRN (21:00)
[2021-06-23] MEDS ORDERED: Albuterol HFA INHALER 8 gm MDI INH PRN (21:00)
[2021-06-23] MEDS: Insulin GLARGINE 100 un/ml 10 ml VIAL SUBCUT SCH (23:05)
[2021-06-24 02:30] LABS: Urine Appearance Cloudy; Urine Bilirubin Negative (Negative); Urine Blood 2+ (Negative); Urine Color Yellow; Urine Glucose Negative (Negative); Urine Ketones Negative (Negative); Urine Nitrite Negative (Negative); Urine Protein 2+(100 mg/dL) (Negative); Urine Specific Gravity 1.009 (1.002-1.030); Urine Urobilinogen Negative (Negative)
[2021-06-24 02:37] LABS: Urine Bacteria 1+ (Absent); Urine Red Blood Cell 3+(>10/hpf) (Absent); Urine Squamous Epithelial Cell Present (Absent); Urine White Blood Cell 2+(11-20/hpf) (Absent)
[2021-06-24 03:43] LABS: ABS Basophils 0.1 10^3/ul (0-0.2); ABS Eosinophils 0.1 10^3/ul (0-0.6); ABS Lymphocytes 1.2 10^3/ul (1.0-4.8); ABS Monocytes 1.5 10^3/ul (0-0.8); ABS Neutrophils 10.5 10^3/ul (1.5-7.7); Eosinophil % 0.8 %; Hematocrit 30 % (35-47); Hemoglobin 9.7 g/dL (12.0-16.0); Lymphocyte % 8.9 %; Mean Corpuscular HGB Conc 32 g/dL (31-36); Mean Corpuscular Hemoglobin 28 pg (27-31); Mean Corpuscular Volume 87 fL (80-97); Mean Platelet Volume 7.5 fL (7.4-10.4); Platelet Count 379 10^3/uL (150-450); Red Blood Count 3.45 10^6 /uL (3.70-4.87); Red Cell Distribution Width 18 % (10-15); White Blood Count 13.4 10^3/uL (3.5-10.8)
[2021-06-24 03:55] LABS: Calcium 8.2 mg/dL (8.6-10.3); eGFR CKD-EPI 18.1 (>60)
[2021-06-24] MEDS: DULoxetine DR 60 mg CAP PO SCH (08:43)
[2021-06-24] MEDS ORDERED: Furosemide 40 mg/4 ml IV VIAL IV ONE (09:00)
[2021-06-24] MEDS: Nystatin TOP POWDER 15 GM BTL TOPICAL SCH ×2 (11:41→21:38)
[2021-06-24] MEDS: cefTRIAXone 1 gm/50 mL NS BAG 1 GM/50 ML BAG IVPB SCH (21:37)
[2021-06-24] MEDS: Insulin GLARGINE 100 un/ml 10 ml VIAL SUBCUT SCH (21:39)
[2021-06-24] MEDS: Azithromycin 500 mg/250 ml NS 500 MG/250 ML BAG IVPB SCH (23:03)
[2021-06-25] MEDS: DULoxetine DR 60 mg CAP PO SCH (08:31)
[2021-06-25] MEDS: Nystatin TOP POWDER 15 GM BTL TOPICAL SCH ×2 (08:32→21:15)
[2021-06-25 10:13] LABS: ABS Eosinophils 0.2 10^3/ul (0-0.6); ABS Monocytes 1.1 10^3/ul (0-0.8); ABS Neutrophils 8.2 10^3/ul (1.5-7.7); Eosinophil % 2.3 %; Hematocrit 31 % (35-47); Lymphocyte % 9.3 %; Mean Corpuscular HGB Conc 32 g/dL (31-36); Mean Corpuscular Hemoglobin 28 pg (27-31); Mean Corpuscular Volume 87 fL (80-97); Mean Platelet Volume 7.7 fL (7.4-10.4); Platelet Count 414 10^3/uL (150-450); Red Blood Count 3.56 10^6 /uL (3.70-4.87); Red Cell Distribution Width 18 % (10-15); White Blood Count 10.6 10^3/uL (3.5-10.8)
[2021-06-25 10:28] LABS: Calcium 8.3 mg/dL (8.6-10.3); Potassium 3.8 mmol/L (3.5-5.0)
[2021-06-25] MEDS: cefTRIAXone 1 gm/50 mL NS BAG 1 GM/50 ML BAG IVPB SCH (21:15)
[2021-06-25] MEDS: Insulin GLARGINE 100 un/ml 10 ml VIAL SUBCUT SCH (21:15)
[2021-06-26] MEDS: Azithromycin 500 mg/250 ml NS 500 MG/250 ML BAG IVPB SCH ×2 (01:00→23:46)
[2021-06-26] MEDS: DULoxetine DR 60 mg CAP PO SCH (08:34)
[2021-06-26] MEDS: Nystatin TOP POWDER 15 GM BTL TOPICAL SCH ×2 (08:35→22:31)
[2021-06-26] MEDS ORDERED: Senna TAB 8.6 mg TAB PO PRN (10:31)
[2021-06-26] MEDS ORDERED: Magnesium Hydroxide LIQ 30 ML UDC PO PRN (10:31)
[2021-06-26] MEDS: Polyethylene Glycol 3350 17 GM PACKET PO PRN (14:10)
[2021-06-26] MEDS: Insulin GLARGINE 100 un/ml 10 ml VIAL SUBCUT SCH (22:15)
[2021-06-26] MEDS: cefTRIAXone 1 gm/50 mL NS BAG 1 GM/50 ML BAG IVPB SCH (22:17)
[2021-06-26] MEDS: Magnesium Hydroxide LIQ 30 ML UDC PO SCH (22:26)
[2021-06-27 07:00] LABS: Calcium 8.5 mg/dL (8.6-10.3); Magnesium 2.4 mg/dL (1.9-2.7); Potassium 4.3 mmol/L (3.5-5.0); eGFR CKD-EPI 19.8 (>60)
[2021-06-27] MEDS: Magnesium Hydroxide LIQ 30 ML UDC PO SCH (09:42)
[2021-06-27] MEDS: Polyethylene Glycol 3350 17 GM PACKET PO PRN (09:43)
[2021-06-27] MEDS: DULoxetine DR 60 mg CAP PO SCH (09:43)
[2021-06-27] MEDS: Nystatin TOP POWDER 15 GM BTL TOPICAL SCH (09:44)
[2021-06-27 10:26] LABS: C Reactive Protein 75.93 mg/L (<8.01)
[2021-06-27 12:36] VITALS: BP 147/84
== END 2021-06-27 16:25 | disposition home or self-care (01) | DRG 193 ==
LOC: ED 18:32 → MEDTELE 23:21 → SUATTDRO 23:21
PROVIDERS: ADMIT Hospitalist; ATTEND Hospitalist

== ENCOUNTER 2021-07-02 15:09 | Inpatient (IN) ==
[2021-07-02] MEDS ORDERED: Furosemide 40 mg/4 ml IV VIAL IV ONE (16:39)
[2021-07-02 17:07] LABS: ABS Basophils 0.1 10^3/ul (0-0.2); ABS Eosinophils 0.2 10^3/ul (0-0.6); ABS Lymphocytes 0.8 10^3/ul (1.0-4.8); ABS Monocytes 0.9 10^3/ul (0-0.8); ABS Neutrophils 6.3 10^3/ul (1.5-7.7); Eosinophil % 2.3 %; Hematocrit 32 % (35-47); Hemoglobin 10.1 g/dL (12.0-16.0); Lymphocyte % 9.7 %; Mean Corpuscular HGB Conc 32 g/dL (31-36); Mean Corpuscular Hemoglobin 28 pg (27-31); Mean Corpuscular Volume 87 fL (80-97); Mean Platelet Volume 7.3 fL (7.4-10.4); Nucleated Red Blood Cells % 0.1; Platelet Count 505 10^3/uL (150-450); Red Blood Count 3.66 10^6 /uL (3.70-4.87); Red Cell Distribution Width 18 % (10-15); White Blood Count 8.2 10^3/uL (3.5-10.8)
[2021-07-02 17:23] LABS: Activated Partial Thrombo Time 35.9 seconds (26.0-38.0); INR 1.3 (0.86-1.15)
[2021-07-02 17:25] LABS: ALT 18 U/L (7-52); Albumin 3.7 g/dL (3.2-5.2); Alkaline Phosphatase 108 U/L (35-149); Blood Urea Nitrogen 30 mg/dL (6-24); CO2 Carbon Dioxide 29 mmol/L (22-32); Calcium 8.5 mg/dL (8.6-10.3); Chloride 101 mmol/L (101-111); Globulin 3.6 g/dL (2-4); Glucose 131 mg/dL (70-100); Sodium 136 mmol/L (135-145); Total Protein 7.3 g/dL (6.4-8.9); eGFR CKD-EPI 19.9 (>60)
[2021-07-02 17:30] LABS: Troponin I 0.03 ng/mL (<0.03)
[2021-07-02 17:31] LABS: Anion Gap 6 mmol/L (2-11)
[2021-07-02] MEDS ORDERED: cefTRIAXone 1 gm/50 mL NS BAG 1 GM/50 ML BAG IVPB ONE (18:37)
[2021-07-02 18:50] LABS: Potassium Redraw 4.2 mmol/L (3.5-5.0)
[2021-07-02 19:16] LABS: Urine Appearance Cloudy; Urine Bilirubin Negative (Negative); Urine Blood 2+ (Negative); Urine Color Straw; Urine Glucose Negative (Negative); Urine Ketones Negative (Negative); Urine Nitrite Negative (Negative); Urine Protein 2+(100 mg/dL) (Negative); Urine Specific Gravity 1.005 (1.002-1.030); Urine Urobilinogen Negative (Negative)
[2021-07-02 19:30] LABS: C Reactive Protein 8.57 mg/L (<8.01)
[2021-07-02] MEDS ORDERED: Albuterol HFA INHALER 8 gm MDI INH PRN (19:40)
[2021-07-02 19:59] LABS: Urine Bacteria 1+ (Absent); Urine Red Blood Cell 3+(>10/hpf) (Absent); Urine Squamous Epithelial Cell Present (Absent); Urine White Blood Cell 3+(>20/hpf) (Absent); Urine Yeast Present (Absent)
[2021-07-02] MEDS ORDERED: Ondansetron 4 mg VIAL 2 MG/ML 2 ml VIAL IV PRN (20:58)
[2021-07-02] MEDS ORDERED: Dextrose 50% Syringe 50 ml 25 GM/50 ML SYRINGE IV PUSH PRN (22:19)
[2021-07-03 06:28] LABS: Hematocrit 30 % (35-47); Hemoglobin 9.7 g/dL (12.0-16.0); Mean Corpuscular HGB Conc 33 g/dL (31-36); Mean Corpuscular Hemoglobin 28 pg (27-31); Mean Corpuscular Volume 86 fL (80-97); Platelet Count 443 10^3/uL (150-450); Red Blood Count 3.47 10^6 /uL (3.70-4.87); Red Cell Distribution Width 18 % (10-15); White Blood Count 6.2 10^3/uL (3.5-10.8)
[2021-07-03 06:44] LABS: ABS Eosinophils 0.1 10^3/ul (0-0.6); ABS Neutrophils 4.1 10^3/ul (1.5-7.7); Eosinophil % 1.8 %; Lymphocyte % 15.4 %; Nucleated Red Blood Cells % 0.4
[2021-07-03 06:51] LABS: Anion Gap 5 mmol/L (2-11); Blood Urea Nitrogen 32 mg/dL (6-24); CO2 Carbon Dioxide 31 mmol/L (22-32); Calcium 8.6 mg/dL (8.6-10.3); Chloride 101 mmol/L (101-111); Glucose 124 mg/dL (70-100); Magnesium 2.2 mg/dL (1.9-2.7); Potassium 4.3 mmol/L (3.5-5.0); Sodium 137 mmol/L (135-145); eGFR CKD-EPI 18.4 (>60)
[2021-07-03 06:53] LABS: Troponin I 0.03 ng/mL (<0.03)
[2021-07-03] MEDS: Furosemide 40 mg/4 ml IV VIAL IV SLOW PU SCH (08:07)
[2021-07-03] MEDS ORDERED: DULoxetine DR 60 mg CAP PO SCH (09:00)
[2021-07-03] MEDS ORDERED: Furosemide 40 mg/4 ml IV VIAL IV ONE (14:00)
[2021-07-03 14:49] LABS: PCO2 Arterial 54 mmHg (35-45); PO2 Arterial 80 mmHg (80-100)
[2021-07-03] MEDS: cefTRIAXone 1 gm/50 mL NS BAG 1 GM/50 ML BAG IVPB SCH (16:06)
[2021-07-03] MEDS: Insulin GLARGINE 100 un/ml 10 ml VIAL SUBCUT SCH (19:57)
[2021-07-04 05:20] LABS: ABS Eosinophils 0.1 10^3/ul (0-0.6); ABS Lymphocytes 0.8 10^3/ul (1.0-4.8); ABS Monocytes 0.9 10^3/ul (0-0.8); ABS Neutrophils 4.5 10^3/ul (1.5-7.7); Eosinophil % 1.5 %; Hematocrit 31 % (35-47); Hemoglobin 9.9 g/dL (12.0-16.0); Lymphocyte % 12.9 %; Mean Corpuscular HGB Conc 32 g/dL (31-36); Mean Corpuscular Hemoglobin 28 pg (27-31); Mean Corpuscular Volume 87 fL (80-97); Mean Platelet Volume 7.1 fL (7.4-10.4); Nucleated Red Blood Cells % 0.2; Platelet Count 426 10^3/uL (150-450); Red Blood Count 3.56 10^6 /uL (3.70-4.87); Red Cell Distribution Width 18 % (10-15); White Blood Count 6.4 10^3/uL (3.5-10.8)
[2021-07-04 05:35] LABS: Calcium 8.2 mg/dL (8.6-10.3); Magnesium 2.2 mg/dL (1.9-2.7); Potassium 4.3 mmol/L (3.5-5.0); eGFR CKD-EPI 17.9 (>60)
[2021-07-04] MEDS: Furosemide 40 mg/4 ml IV VIAL IV SLOW PU SCH (10:11)
[2021-07-04] MEDS ORDERED: Furosemide 40 mg/4 ml IV VIAL IV ONE (14:00)
[2021-07-04] MEDS: cefTRIAXone 1 gm/50 mL NS BAG 1 GM/50 ML BAG IVPB SCH (14:38)
[2021-07-04] MEDS: Insulin GLARGINE 100 un/ml 10 ml VIAL SUBCUT SCH (19:46)
[2021-07-05 04:28] LABS: PCO2 Arterial 58 mmHg (35-45); PO2 Arterial 60 mmHg (80-100)
[2021-07-05 04:43] LABS: Hematocrit 29 % (35-47); Hemoglobin 9.2 g/dL (12.0-16.0); Mean Corpuscular HGB Conc 32 g/dL (31-36); Mean Corpuscular Hemoglobin 28 pg (27-31); Mean Corpuscular Volume 87 fL (80-97); Mean Platelet Volume 6.9 fL (7.4-10.4); Platelet Count 370 10^3/uL (150-450); Red Blood Count 3.31 10^6 /uL (3.70-4.87); Red Cell Distribution Width 18 % (10-15); White Blood Count 4.5 10^3/uL (3.5-10.8)
[2021-07-05 04:46] LABS: ABS Eosinophils 0.1 10^3/ul (0-0.6); ABS Lymphocytes 0.9 10^3/ul (1.0-4.8); ABS Monocytes 0.9 10^3/ul (0-0.8); ABS Neutrophils 2.5 10^3/ul (1.5-7.7); Eosinophil % 2.4 %; Lymphocyte % 20.6 %
[2021-07-05 05:15] LABS: Calcium 7.9 mg/dL (8.6-10.3); Potassium 3.7 mmol/L (3.5-5.0); eGFR CKD-EPI 17.4 (>60)
[2021-07-05] MEDS: Furosemide 40 mg/4 ml IV VIAL IV SLOW PU SCH (08:24)
[2021-07-05 09:30] LABS: C Reactive Protein 8.48 mg/L (<8.01)
[2021-07-05] MEDS: cefTRIAXone 1 gm/50 mL NS BAG 1 GM/50 ML BAG IVPB SCH (14:45)
[2021-07-05] MEDS: Insulin GLARGINE 100 un/ml 10 ml VIAL SUBCUT SCH (20:13)
[2021-07-06 05:47] LABS: ABS Basophils 0.1 10^3/ul (0-0.2); ABS Eosinophils 0.1 10^3/ul (0-0.6); ABS Lymphocytes 0.9 10^3/ul (1.0-4.8); ABS Monocytes 0.8 10^3/ul (0-0.8); ABS Neutrophils 3.5 10^3/ul (1.5-7.7); Eosinophil % 1.7 %; Hematocrit 29 % (35-47); Hemoglobin 9.1 g/dL (12.0-16.0); Lymphocyte % 17.4 %; Mean Corpuscular HGB Conc 32 g/dL (31-36); Mean Corpuscular Hemoglobin 27 pg (27-31); Mean Corpuscular Volume 86 fL (80-97); Mean Platelet Volume 6.9 fL (7.4-10.4); Nucleated Red Blood Cells % 0.1; Platelet Count 363 10^3/uL (150-450); Red Blood Count 3.34 10^6 /uL (3.70-4.87); Red Cell Distribution Width 18 % (10-15); White Blood Count 5.4 10^3/uL (3.5-10.8)
[2021-07-06 06:05] LABS: Calcium 7.6 mg/dL (8.6-10.3); Potassium 3.8 mmol/L (3.5-5.0); eGFR CKD-EPI 16.7 (>60)
[2021-07-06] MEDS ORDERED: Albuterol/Ipratropium NEB.SOL (2.5/0.5 MG) 3 ML NEB.SOLN INH SCH (11:00)
[2021-07-06] MEDS ORDERED: Albuterol/Ipratropium NEB.SOL (2.5/0.5 MG) 3 ML NEB.SOLN INH PRN (14:20)
[2021-07-06] MEDS ORDERED: Albuterol HFA INHALER 8 gm MDI INH PRN (14:24)
[2021-07-06] MEDS: cefTRIAXone 1 gm/50 mL NS BAG 1 GM/50 ML BAG IVPB SCH (17:54)
[2021-07-06] MEDS: Mometasone/Formoter 200/5 MDI INH SCH (19:52)
[2021-07-06] MEDS: Insulin GLARGINE 100 un/ml 10 ml VIAL SUBCUT SCH (21:30)
[2021-07-07 06:12] LABS: ABS Eosinophils 0.1 10^3/ul (0-0.6); ABS Lymphocytes 1.1 10^3/ul (1.0-4.8); ABS Monocytes 0.8 10^3/ul (0-0.8); ABS Neutrophils 2.9 10^3/ul (1.5-7.7); Eosinophil % 1.9 %; Hematocrit 28 % (35-47); Hemoglobin 9.2 g/dL (12.0-16.0); Lymphocyte % 22.1 %; Mean Corpuscular HGB Conc 33 g/dL (31-36); Mean Corpuscular Hemoglobin 28 pg (27-31); Mean Corpuscular Volume 87 fL (80-97); Mean Platelet Volume 7.4 fL (7.4-10.4); Platelet Count 322 10^3/uL (150-450); Red Blood Count 3.26 10^6 /uL (3.70-4.87); Red Cell Distribution Width 18 % (10-15); White Blood Count 4.9 10^3/uL (3.5-10.8)
[2021-07-07 06:26] LABS: Calcium 7.5 mg/dL (8.6-10.3); Magnesium 2.1 mg/dL (1.9-2.7); Potassium 3.7 mmol/L (3.5-5.0); eGFR CKD-EPI 16.3 (>60)
[2021-07-07] MEDS: Mometasone/Formoter 200/5 MDI INH SCH ×2 (09:01→20:23)
[2021-07-07 13:49] LABS: Ferritin 44.5 ng/mL (11-307)
[2021-07-07] MEDS: cefTRIAXone 1 gm/50 mL NS BAG 1 GM/50 ML BAG IVPB SCH (18:09)
[2021-07-07 18:43] LABS: Urine Appearance Clear; Urine Bilirubin Negative (Negative); Urine Blood 1+ (Negative); Urine Color Yellow; Urine Glucose 2+(150 mg/dL) (Negative); Urine Ketones Negative (Negative); Urine Nitrite Negative (Negative); Urine Protein 3+(>=500 mg/dL) (Negative); Urine Specific Gravity 1.016 (1.002-1.030); Urine Urobilinogen Negative (Negative)
[2021-07-07 18:51] LABS: Urine Bacteria 1+ (Absent); Urine Red Blood Cell Trace(0-2/hpf) (Absent); Urine White Blood Cell Trace(0-5/hpf) (Absent)
[2021-07-07] MEDS: Insulin GLARGINE 100 un/ml 10 ml VIAL SUBCUT SCH (20:52)
[2021-07-08 07:25] LABS: Calcium 7.4 mg/dL (8.6-10.3); Magnesium 2.3 mg/dL (1.9-2.7); eGFR CKD-EPI 17.8 (>60)
[2021-07-08] MEDS: Mometasone/Formoter 200/5 MDI INH SCH ×2 (07:45→20:21)
[2021-07-08] MEDS ORDERED: Dextrose 50% Syringe 50 ml 25 GM/50 ML SYRINGE IV PUSH PRN (09:52)
[2021-07-08 13:07] LABS: % Iron Saturation 20 % (14 - 50); Total Iron Binding Capacity 256 mcg/dL (250 - 400); Transferrin 217 mg/dL (200 - 360)
[2021-07-08] MEDS: cefTRIAXone 1 gm/50 mL NS BAG 1 GM/50 ML BAG IVPB SCH (14:57)
[2021-07-08] MEDS: Insulin GLARGINE 100 un/ml 10 ml VIAL SUBCUT SCH (20:15)
[2021-07-09 05:36] LABS: Hematocrit 27 % (35-47); Hemoglobin 8.7 g/dL (12.0-16.0); Mean Corpuscular HGB Conc 33 g/dL (31-36); Mean Corpuscular Hemoglobin 28 pg (27-31); Mean Corpuscular Volume 86 fL (80-97); Mean Platelet Volume 7.3 fL (7.4-10.4); Platelet Count 360 10^3/uL (150-450); Red Cell Distribution Width 19 % (10-15); White Blood Count 6.7 10^3/uL (3.5-10.8)
[2021-07-09 05:53] LABS: Calcium 7.5 mg/dL (8.6-10.3); Magnesium 2.3 mg/dL (1.9-2.7); Potassium 3.7 mmol/L (3.5-5.0); eGFR CKD-EPI 18.4 (>60)
[2021-07-09] MEDS: Mometasone/Formoter 200/5 MDI INH SCH ×2 (10:02→20:49)
[2021-07-09] MEDS: Insulin GLARGINE 100 un/ml 10 ml VIAL SUBCUT SCH (21:40)
[2021-07-10] MEDS: Mometasone/Formoter 200/5 MDI INH SCH (07:35)
[2021-07-10 08:34] LABS: Hematocrit 27 % (35-47); Hemoglobin 8.7 g/dL (12.0-16.0); Mean Corpuscular HGB Conc 33 g/dL (31-36); Mean Corpuscular Hemoglobin 28 pg (27-31); Mean Corpuscular Volume 86 fL (80-97); Mean Platelet Volume 7.1 fL (7.4-10.4); Platelet Count 371 10^3/uL (150-450); Red Blood Count 3.08 10^6 /uL (3.70-4.87); Red Cell Distribution Width 19 % (10-15); White Blood Count 6.9 10^3/uL (3.5-10.8)
[2021-07-10 08:51] LABS: eGFR CKD-EPI 20.9 (>60)
[2021-07-10 09:12] LABS: ABS Basophils 0.1 10^3/ul (0-0.2); ABS Eosinophils 0.1 10^3/ul (0-0.6); ABS Lymphocytes 1.6 10^3/ul (1.0-4.8); ABS Monocytes 0.7 10^3/ul (0-0.8); ABS Neutrophils 4.4 10^3/ul (1.5-7.7); Eosinophil % 1.5 %; Lymphocyte % 22.9 %; Nucleated Red Blood Cells % 0.1
[2021-07-10 16:10] VITALS: BP 123/67
== END 2021-07-10 16:15 | disposition home health service (06) | DRG 291 ==
LOC: EDHOLD 15:09 → ED 15:09 → MEDTELE 22:29 → SUATTDRO 07-03 16:00
PROVIDERS: ADMIT Student in an Organized Health Care Education/Training Program; ATTEND Internal Medicine